=== PATIENT | female | born 1955 | race Caucasian/White ===

== ENCOUNTER 2021-11-12 15:26 | Emergency (ER) | payer MEDICARE, SELFPAY ==
--- NOTE | ~2021-11-12 | CT_ITS ---
EXAMINATION: CT brain wo con INDICATION: Head injury COMPARISON: None TECHNIQUE: Standard unenhanced head CT. The dose-length product (DLP) was 681.00 mGy-cm. The mA was a djusted according to patient size. Iterative reconstruction technique was employed. FINDINGS: There is no intracranial hemorrhage, acute infarction, or abnormal mass lesion. The ventric les are normal. There is no abnormal mass effect or midline shift. The love-white matter differentiat ion is normal. The basal cisterns are patent. There is a left frontal scalp hematoma. The orbits are normal. The paranasal sinuses, mastoids and calvarium are normal. IMPRESSION: 1. Left frontal scalp hematoma without acute intracranial abnormality. Reviewed, dictated and finalized at [facility].
--- NOTE | 2021-11-12 15:33 | ED.FALL ---
HPI - Fall General Chief Complaint: Fall Stated Complaint: FELL AND HIT HEAD Source: patient and RN notes reviewed Mode of arrival: ambulatory Limitations: no limitations History of Present Illness HPI Narrative: patient states that she fell 1 week ago in the bathroom hit her forehead right at the hairline. She now has some bruising around her left eye. The swelling on her left forehead is still painful and present therefore she came the emergency room to get an x-ray. She was having some headaches but those stopped 2 days ago. She has no other neurological symptoms. MD complaint: fall Onset (ago): day(s) (7) Fall from: standing Fall witnessed: no Place fall occurred: home Loss of consciousness: unsure Prolonged down time: no Symptoms prior to fall: none Context: tripped/slipped Location of injury: head Severity: mild Quality: dull and aching Associated symptoms (after fall): denies Related Data Home Medications Medication Instructions Recorded Confirmed alprazolam 0.5 mg tablet 0.5 mg PO BID 11/12/21 11/12/21 atorvastatin 40 mg tablet 40 mg PO DAILY 11/12/21 11/12/21 azelastine 0.05 % eye drops 1 drp EACH EYE BID 11/12/21 11/12/21 buspirone 5 mg tablet 5 mg PO TID 11/12/21 11/12/21 diltiazem HCl 180 mg 180 mg PO DAILY 11/12/21 11/12/21 capsule,extended release 24 hr duloxetine 60 mg capsule,delayed 60 mg PO DAILY 11/12/21 11/12/21 release empagliflozin 25 mg tablet 25 mg PO DAILY 11/12/21 11/12/21 (Jardiance) ergocalciferol (vitamin D2) 1,250 1,250 mcg PO WEEKLY 11/12/21 11/12/21 mcg (50,000 unit) capsule ezetimibe 10 mg tablet 10 mg PO DAILY 11/12/21 11/12/21 fenofibrate 54 mg tablet 54 mg PO DAILY 11/12/21 11/12/21 ferrous sulfate 325 mg (65 mg 325 mg PO DAILY 11/12/21 11/12/21 iron) tablet furosemide 40 mg tablet 60 mg PO DAILY 11/12/21 11/12/21 gabapentin 300 mg capsule 300 mg PO TID 11/12/21 11/12/21 hydrochlorothiazide 25 mg tablet 25 mg PO DAILY 11/12/21 11/12/21 insulin aspart U-100 100 unit/mL 50 unit subcut TID 11/12/21 11/12/21 (3 mL) subcutaneous pen (Novolog Flexpen U-100 Insulin aspart) insulin degludec 200 unit/mL (3 10 unit subcut QAM 11/12/21 11/12/21 mL) subcutaneous pen (Tresiba FlexTouch U-200 insulin) levothyroxine 25 mcg tablet 25 mcg PO DAILY 11/12/21 11/12/21 ramipril 10 mg capsule 10 mg PO BID 11/12/21 11/12/21 Allergies Allergy/AdvReac Type Severity Reaction Status Date / Time No Known Allergies Allergy Unverified 11/12/21 15:54 Review of Systems Review of Systems: All systems reviewed & are unremarkable except as noted in HPI and below Neurologic: Denies confusion, Denies dizziness, Denies syncope and Denies focal weakness PMFSH Past Medical History Medical History (Updated 11/12/21 @ 16:42 by Edwin Hoover MD) Chronic renal failure Congestive heart failure COPD (chronic obstructive pulmonary disease) Hyperlipidemia Hypertension Type 2 diabetes mellitus Family History Family History Father Hypertension Family history of diabetes mellitus in first degree relative Family history of lung cancer Mother Hypertension Family history of diabetes mellitus in first degree relative Family history of coronary artery disease Sibling Cerebrovascular accident Social History Social History (Updated 11/12/21 @ 15:54 by Edwin Hoover MD) Smoking status: Former smoker Alcohol intake: never Exam Const: General: healthy appearing, no acute distress and alert Nutritional Appearance: well nourished and obese morbidly obese Orientation/consciousness: patient oriented x3 Limitations: no limitations HENMT: Head: hematoma left frontal 3 cm Ears: external ears normal Face and sinus: sinuses tender, face symmetric, ecchymosis on the left periorbital and no tenderness Eyes: Conjunctivae: conjunctivae normal Pupils: Equal, round and reactive pupils present EOM: EOMs intact bilaterally Neck:
[2021-11-12 15:50] VITALS: BP 129/63; PULSE 70; RESP 16; TEMP 36.6; O2SAT 98
--- NOTE | 2021-11-12 16:12 | PC.NURSE ---
upon arrival patient refused to sit on stretcher and request to stay in personal wheelchair. states its more comfortable for her.
[2021-11-12 16:46] VITALS: BP 162/57; PULSE 63; RESP 16; TEMP 36.8; O2SAT 100
== END 2021-11-12 16:48 | disposition home or self-care (01) ==
PROVIDERS: Emergency Provider Emergency Medicine
DX: S00.03XA Contusion of scalp, initial encounter (principal); W19.XXXA Unspecified fall, initial encounter; I50.9 Heart failure, unspecified; J44.9 Chronic obstructive pulmonary disease, unspecified; I12.9 Hypertensive chronic kidney disease with stage 1 through stage 4 chronic kidney disease, or unspecified chronic kidney disease; E11.22 Type 2 diabetes mellitus with diabetic chronic kidney disease; N18.9 Chronic kidney disease, unspecified; Z87.891 Personal history of nicotine dependence; Z79.4 Long term (current) use of insulin
CPT/HCPCS: 70450; 99284

== ENCOUNTER 2022-06-05 13:39 | Emergency (ER) | payer MEDICARE, SELFPAY ==
[2022-06-05] VITALS (10 sets, daily range): BP systolic 132–164; BP diastolic 46–78; PULSE 66–77; RESP 14–22; TEMP 36.2; O2SAT 94–98
--- NOTE | ~2022-06-05 | XR_ITS ---
Portable chest x-ray Comparison: 01/09/2011 Clinical History: Dyspnea Findings: Central congestive changes present. No focal consolidation or pleural effusion Cardiomedi astinal silhouette is stable. Bones and soft tissues are unremarkable. Impression: Central pulmonary venous congestive change. Reviewed, dictated and finalized at [facility]. PRESS OPERATOR Impression: Central pulmonary venous congestive change.
--- NOTE | 2022-06-05 14:03 | ECG_ITS ---
Measurements Intervals [place] Rate: 66 P: 66 [place]: 178 QRS: 36 QRSD: 114 T: 148 QT: 423 QTc: 444 Interpretive Statements SINUS RHYTHM INTRAVENTRICULAR CONDUCTION DELAY BORDERLINE ST-T WAVE ABNORMALITY- INF/HIGH LAT LEADS BORDERLINE ECG NO PREVIOUS ECG AVAILABLE FOR COMPARISON Electronically Signed On 06-05-2022 19:13:12 PICK UP DRIVER by Fernando Medina D.O.
[2022-06-05] MEDS: IPRATROPIUM 0.5 MG/ALBUTEROL SULFATE 2.5 MG AMPUL.NEB 3 ML INHALATION (14:37)
[2022-06-05 14:43] LABS: Basophils Absolute Auto 0.04 K/mm3 (0.00-0.10); Basophils Percent Auto 0.4 % (0.0-1.0); Eosinophils Absolute Auto 0.17 K/mm3 (0.02-0.50); Eosinophils Percent Auto 1.9 % (1.0-6.0); Hematocrit 30.3 % (35.0-42.0); Hemoglobin 9.7 g/dL (11.7-13.8); Immature Granulocyte Absolute 0.03 K/mm3 (0.00-0.00); Immature Granulocyte Percent A 0.3 % (0.0-0.0); Lymphocytes Absolute Auto 0.63 K/mm3 (1.10-4.50); Lymphocytes Percent Auto 7.1 % (18.0-42.0); Mean Corpuscular Volume 96.8 fL (78.0-102.0); Mean Platelet Volume 8.6 fl (9.2-11.8); Monocytes Absolute Auto 0.51 K/mm3 (0.10-0.90); Monocytes Percent Auto 5.7 % (2.0-11.0); Neutrophils Absolute Auto 7.6 K/mm3 (1.7-7.2); Neutrophils Percent Auto 84.6 % (50.0-70.0); Platelet Count Result 361 K/mm3 (150-420); Red Blood Count 3.13 M/mm3 (4.20-5.40); Red Cell Distribution Width 13.2 % (11.6-14.4); White Blood Count 8.9 K/mm3 (4.8-10.8)
[2022-06-05] MEDS: methylPREDNISolone SOD SUCC 125 MG VIAL IV PUSH (14:55)
[2022-06-05 15:07] LABS: Alanine Aminotransferase 31 U/L (14-59); Albumin Level 2.5 g/dL (3.4-5.0); Alkaline Phosphatase 86 U/L (46-116); Anion Gap 5 mmol/L (8-16); Aspartate Amino Transferase 22 U/L (15-37); Bilirubin,Total 0.2 mg/dL (0.00-1.00); Blood Urea Nitrogen 40 mg/dL (7-18); Calcium 6.1 mg/dL (8.5-10.1); Carbon Dioxide 33 mmol/L (21-32); Chloride 97 mmol/L (98-108); Estimated CRCL calculation 26 ml/min; Estimated Glomerular Filt Rate 24; Glucose 77 mg/dL (70-99); Magnesium 2.7 mg/dL (1.8-2.4); NT Pro B Type Natriuretic Pept 616 pg/mL (0-125); Osmolality Calculated 288 mOsm/kg (285-295); Potassium 4.4 mmol/L (3.5-5.1); Sodium 135 mmol/L (136-145); Troponin I 13.1 ng/L (0.00-60.4)
[2022-06-05 15:09] LABS: D Dimer 0.28 mg/L (0.19-0.50); INR 0.9; Partial Thromboplastin Time 27.1 SEC (23.90-30.70); Prothrombin Time 10.1 Seconds (9.50-12.10)
[2022-06-05 15:22] LABS: Influenza A QL RT-PCR Negative (Negative); Influenza B QL RT-PCR Negative (Negative); SARS-CoV-2 RNA PCR Negative (Negative)
--- NOTE | 2022-06-05 15:22 | ED.SOB ---
HPI - SOB/Dyspnea General Chief Complaint: Shortness of Breath/Dyspnea Stated Complaint: upper respiratory issues Time Seen by Provider: 06/05/22 14:00 Source: patient and family Mode of arrival: EMS Limitations: no limitations History of Present Illness HPI Narrative: this is a 67-year-old female with a history of COPD currently nonsmoker quit approximately 6 years ago history chronic kidney disease and CHF presents with a five-day history of progressively worsening shortness of breath with a cough productive yellow sputum with vital signs stable O2 sats nearly 98% on room air has not been vaccinated car for COVID but patient has had 2 successive negative COVID test at home. Currently not having any chest pain no fever chills no nausea vomiting no abdominal pain no flank pain. MD elicited complaint: shortness of breath and cough Pertinent past history: COPD Onset (ago): day(s) Severity: mild Exacerbating factors: coughing Relieving factors: bronchodilators Related Data Home Medications Medication Instructions Recorded Confirmed alprazolam 0.5 mg tablet 0.5 mg PO BID 11/12/21 11/12/21 atorvastatin 40 mg tablet 40 mg PO DAILY 11/12/21 11/12/21 azelastine 0.05 % eye drops 1 drp EACH EYE BID 11/12/21 11/12/21 buspirone 5 mg tablet 5 mg PO TID 11/12/21 11/12/21 diltiazem HCl 180 mg 180 mg PO DAILY 11/12/21 11/12/21 capsule,extended release 24 hr duloxetine 60 mg capsule,delayed 60 mg PO DAILY 11/12/21 11/12/21 release empagliflozin 25 mg tablet 25 mg PO DAILY 11/12/21 11/12/21 (Jardiance) ergocalciferol (vitamin D2) 1,250 1,250 mcg PO WEEKLY 11/12/21 11/12/21 mcg (50,000 unit) capsule ezetimibe 10 mg tablet 10 mg PO DAILY 11/12/21 11/12/21 fenofibrate 54 mg tablet 54 mg PO DAILY 11/12/21 11/12/21 ferrous sulfate 325 mg (65 mg 325 mg PO DAILY 11/12/21 11/12/21 iron) tablet furosemide 40 mg tablet 60 mg PO DAILY 11/12/21 11/12/21 gabapentin 300 mg capsule 300 mg PO TID 11/12/21 11/12/21 hydrochlorothiazide 25 mg tablet 25 mg PO DAILY 11/12/21 11/12/21 insulin aspart U-100 100 unit/mL 50 unit subcut TID 11/12/21 11/12/21 (3 mL) subcutaneous pen (Novolog FlexPen U-100 Insulin aspart) insulin degludec 200 unit/mL (3 10 unit subcut QAM 11/12/21 11/12/21 mL) subcutaneous pen (Tresiba FlexTouch U-200 insulin) levothyroxine 25 mcg tablet 25 mcg PO DAILY 11/12/21 11/12/21 ramipril 10 mg capsule 10 mg PO BID 11/12/21 11/12/21 Allergies Allergy/AdvReac Type Severity Reaction Status Date / Time iodine Allergy Unknown Verified 06/05/22 14:38 Review of Systems Review of Systems: All systems reviewed & are unremarkable except as noted in HPI and below PMFSH Past Medical History Medical History Chronic renal failure Congestive heart failure COPD (chronic obstructive pulmonary disease) Hyperlipidemia Hypertension Type 2 diabetes mellitus Family History Family History Father Hypertension Family history of diabetes mellitus in first degree relative Family history of lung cancer Mother Hypertension Family history of diabetes mellitus in first degree relative Family history of coronary artery disease Sibling Cerebrovascular accident Social History Social History Smoking status: Former smoker Alcohol intake: never Exam Const: General: healthy appearing Nutritional Appearance: well nourished Limitations: no limitations HENMT: Head: normal to inspection Face/Nose/Sinus: Normal external nose present Face and sinus: normal facial exam Mouth: Yes Normal oral and palatal mucosa present Eyes: Conjunctivae: conjunctivae normal Pupils: Equal, round and reactive pupils present EOM: EOMs intact bilaterally Neck: Neck: normal visual inspection Chest: Chest palpation & inspection: normal inspection of the chest Resp: Effort &
[2022-06-05 15:25] LABS: Appearance Urine Clear (Clear); Bilirubin Urine Negative (Negative); Blood Urine Trace-Intact (Negative); Color Urine Light Yellow (Yellow); Glucose Urine UA 1+ (Negative); Ketones Urine Negative (Negative); Leukocyte Esterase Ur Negative LEU/UL (Negative); Nitrate Urine Negative (Negative); Protein Urine 2+ (Negative); Urobilinogen Urine 0.2 mg/dL (0.2-1.0)
[2022-06-05 15:35] LABS: RSV RNA, RT-PCR Negative (Negative)
[2022-06-05 15:41] LABS: Add Urine Microscopic? YES; Bacteria Urine 1+ /hpf; RBC Urine 0-2 /hpf (0-2); Squamous Epithelial Cell Urine Few /hpf (Few); WBC Urine 0-3 /hpf (0-3)
--- NOTE | 2022-06-05 15:52 | PC.NURSE ---
provider at pt bedside for update including plan of care.
[2022-06-05] MEDS: levoFLOXacin 500 MG/D5W 100 ML 500 MG/100 ML BAG 100 MG IVPB (16:12)
[2022-06-05] MEDS: diphenhydrAMINE HCl INJ 50 MG/ML VIAL 25 MG IV PUSH (16:32)
== END 2022-06-05 17:17 | disposition home or self-care (01) ==
PROVIDERS: Emergency Provider Emergency Medicine
DX: J44.1 Chronic obstructive pulmonary disease with (acute) exacerbation (principal); J06.9 Acute upper respiratory infection, unspecified; I13.0 Hypertensive heart and chronic kidney disease with heart failure and stage 1 through stage 4 chronic kidney disease, or unspecified chronic kidney disease; I50.9 Heart failure, unspecified; N18.9 Chronic kidney disease, unspecified; E11.22 Type 2 diabetes mellitus with diabetic chronic kidney disease; Z87.891 Personal history of nicotine dependence; Z79.4 Long term (current) use of insulin; Z20.822 Contact with and (suspected) exposure to COVID-19
CPT/HCPCS: 36415; 71045; 80053; 81001; 83735; 83880; 84484; 85025; 85380; 85610; 85730; 87637; 93005; 94640; 96374; 96375; 99284; J1200; J1956; J2930

== ENCOUNTER 2023-08-09 10:23 | Emergency (ER) | payer MEDICARE, SELFPAY ==
--- NOTE | ~2023-08-09 | CT_ITS ---
EXAMINATION: CT orbit BI wo con DATE: 08/09/2023 10:53 INDICATION: Left eye swelling and tenderness for one week TECHNIQUE: Computed tomography (CT) of the head was performed without intravenous contrast. The mA wa s adjusted according to patient size. Iterative reconstruction technique was employed. Exam dose: 25 3.21 mGy-cm total exam DLP. Orbits COMPARISON: None FINDINGS: There is asymmetric skin thickening over the left periorbital region. No intraconal or extraconal mass lesion is detected on either side. No proptosis is noted. No radiopa que foreign body. No orbital emphysema. There is a very small fluid level of the left maxillary sinus minimal. Minimal mucoperiosteal thicken ing of the maxillary sinuses. The frontal sinuses and ethmoid air cells and sphenoid sinuses are unre markable. The orbital rims and borges are intact. IMPRESSION: Nonspecific left. Orbital skin thickening No orbital mass lesion Very small fluid level in left maxillary sinus, minimally compressing the maxillary sinuses Reviewed, dictated and finalized at [facility]. Reviewed, dictated and finalized at [facility]. IMPRESSION: Nonspecific left. Orbital skin thickening No orbital mass lesion Very small fluid level in left maxillary sinus, minimally compressing the maxil aurelio sinuses
[2023-08-09 10:27] VITALS: BP 119/49; PULSE 82; RESP 18; TEMP 36.6; O2SAT 92
--- NOTE | 2023-08-09 10:37 | ED.GENADULT ---
HPI - General Adult General Chief complaint: Eye Problems Stated complaint: Eye issue Time Seen by Provider: 08/09/23 10:26 History of Present Illness HPI narrative: Tamanna is a 68F with a PMH of DMII, CHF, CKD, and COPD that presented to the ED with 5 days of worsening left eye swelling, tenderness, itching and clear drainage. No fevers, chills, N/V, chest pain or dyspnea. No trauma reported. No vision changes. She cannot tolerate dye d/t CKD. Related Data Home Medications Medication Instructions Recorded Confirmed alprazolam 0.5 mg tablet 0.5 mg PO BID 11/12/21 11/12/21 atorvastatin 40 mg tablet 40 mg PO DAILY 11/12/21 11/12/21 azelastine 0.05 % eye drops 1 drp EACH EYE BID 11/12/21 11/12/21 buspirone 5 mg tablet 5 mg PO TID 11/12/21 11/12/21 diltiazem HCl 180 mg 180 mg PO DAILY 11/12/21 11/12/21 capsule,extended release 24 hr duloxetine 60 mg capsule,delayed 60 mg PO DAILY 11/12/21 11/12/21 release empagliflozin 25 mg tablet 25 mg PO DAILY 11/12/21 11/12/21 (Jardiance) ergocalciferol (vitamin D2) 1,250 1,250 mcg PO WEEKLY 11/12/21 11/12/21 mcg (50,000 unit) capsule ezetimibe 10 mg tablet 10 mg PO DAILY 11/12/21 11/12/21 fenofibrate 54 mg tablet 54 mg PO DAILY 11/12/21 11/12/21 ferrous sulfate 325 mg (65 mg 325 mg PO DAILY 11/12/21 11/12/21 iron) tablet furosemide 40 mg tablet 60 mg PO DAILY 11/12/21 11/12/21 gabapentin 300 mg capsule 300 mg PO TID 11/12/21 11/12/21 hydrochlorothiazide 25 mg tablet 25 mg PO DAILY 11/12/21 11/12/21 insulin aspart U-100 100 unit/mL 50 unit subcut TID 11/12/21 11/12/21 (3 mL) subcutaneous pen (Novolog FlexPen U-100 Insulin aspart) insulin degludec 200 unit/mL (3 10 unit subcut QAM 11/12/21 11/12/21 mL) subcutaneous pen (Tresiba FlexTouch U-200 insulin) levothyroxine 25 mcg tablet 25 mcg PO DAILY 11/12/21 11/12/21 ramipril 10 mg capsule 10 mg PO BID 11/12/21 11/12/21 Allergies Allergy/AdvReac Type Severity Reaction Status Date / Time iodine Allergy Unknown Verified 08/09/23 10:30 Review of Systems Review of Systems: All systems reviewed & are unremarkable except as noted in HPI and below PMFSH Past Medical History Medical History Chronic renal failure Congestive heart failure COPD (chronic obstructive pulmonary disease) Hyperlipidemia Hypertension Type 2 diabetes mellitus Family History Family History Father Hypertension Family history of diabetes mellitus in first degree relative Family history of lung cancer Mother Hypertension Family history of diabetes mellitus in first degree relative Family history of coronary artery disease Sibling Cerebrovascular accident Social History Social History Smoking status: Former smoker Alcohol intake: never Exam Const: General: cooperative, healthy appearing, comfortable, no acute distress, well developed, alert, awake and Physically active Orientation/consciousness: oriented to person, oriented to place and oriented to time HENMT: Head: normal to inspection, normocephalic and atraumatic Ears: hearing grossly normal bilaterally and external ears normal Face/Nose/Sinus: Normal external nose present Eyes: Sclera: sclerae normal Pupils: Equal, round and reactive pupils present Other: Periorbital structures of left eye are swollen and edematous. There is mild erythema but no warmth and no drainage on exam. Neck: Neck: normal visual inspection Chest: Chest palpation & inspection: normal inspection of the chest Resp: Effort & Inspection: normal respiratory effort, able to speak in complete sentences and no respiratory distress Auscultation: clear to auscultation bilaterally Cardio: Jugular venous distension: no JVD Rate: regular rate Rhythm: regular rhythm Skin: General skin exam: normal color and no rashes or lesions no
[2023-08-09] MEDS: HYDROcodone/acetaminophen (*CRX) 5-325 MG TABLET 1 TAB PO (10:57)
[2023-08-09 11:00] VITALS: BP 137/51; PULSE 57; RESP 17; O2SAT 90
[2023-08-09 11:01] LABS: Basophils Absolute Auto 0.04 K/mm3 (0.00-0.10); Basophils Percent Auto 0.5 % (0.0-1.0); Eosinophils Absolute Auto 0.21 K/mm3 (0.02-0.50); Eosinophils Percent Auto 2.6 % (1.0-6.0); Hemoglobin 11.1 g/dL (11.7-13.8); Immature Granulocyte Absolute 0.07 K/mm3 (0.00-0.00); Immature Granulocyte Percent A 0.9 % (0.0-0.0); Lymphocytes Absolute Auto 0.83 K/mm3 (1.10-4.50); Lymphocytes Percent Auto 10.1 % (18.0-42.0); Mean Corpuscular HGB Conc 30.8 g/dL (32-36); Mean Corpuscular Volume 90.9 fL (78.0-102.0); Mean Platelet Volume 8.8 fl (9.2-11.8); Monocytes Percent Auto 7.3 % (2.0-11.0); Neutrophils Absolute Auto 6.43 K/mm3 (1.70-7.20); Neutrophils Percent Auto 78.6 % (50.0-70.0); Platelet Count Result 396 K/mm3 (150-420); Red Blood Count 3.96 M/mm3 (4.20-5.40); Red Cell Distribution Width 14.8 % (11.6-14.4); White Blood Count 8.2 K/mm3 (4.8-10.8)
[2023-08-09 11:21] LABS: Alanine Aminotransferase 21 U/L (14-59); Alkaline Phosphatase 75 U/L (46-116); Anion Gap 2 mmol/L (4-12); Aspartate Amino Transferase 21 U/L (15-37); Bilirubin,Total 0.2 mg/dL (0.00-1.00); Blood Urea Nitrogen 44 mg/dL (7-18); Carbon Dioxide 40 mmol/L (21-32); Chloride 97 mmol/L (98-108); Estimated Glomerular Filt Rate 23; Glucose 175 mg/dL (70-99); Osmolality Calculated 303 mOsm/kg (285-295); Potassium 3.9 mmol/L (3.5-5.1); Sodium 139 mmol/L (136-145); Total Protein 5.9 g/dL (6.4-8.2)
[2023-08-09 11:26] LABS: Lactic Acid Reflex 1.4 mmol/L (0.4-2.0)
[2023-08-09 11:30] VITALS: BP 139/51; PULSE 57; RESP 17; O2SAT 94
[2023-08-09 11:31] LABS: CRP < 0.1 mg/dL (0.0-0.9)
[2023-08-09] MEDS: FAMOTIDINE 20 MG TABLET PO (11:41)
[2023-08-09] MEDS: diphenhydrAMINE HCl CAP 25 MG CAPSULE 50 MG PO (11:41)
[2023-08-09 12:00] VITALS: BP 128/52; PULSE 57; RESP 17; O2SAT 93
[2023-08-09 12:07] VITALS: BP 128/52; PULSE 57; RESP 17; TEMP 36.7; O2SAT 93
== END 2023-08-09 12:07 | disposition home or self-care (01) ==
PROVIDERS: Emergency Provider Family Medicine; PCP Internal Medicine
DX: H10.53 Contact blepharoconjunctivitis (principal); I13.0 Hypertensive heart and chronic kidney disease with heart failure and stage 1 through stage 4 chronic kidney disease, or unspecified chronic kidney disease; I50.9 Heart failure, unspecified; E11.22 Type 2 diabetes mellitus with diabetic chronic kidney disease; N18.9 Chronic kidney disease, unspecified; J44.9 Chronic obstructive pulmonary disease, unspecified; Z79.84 Long term (current) use of oral hypoglycemic drugs; Z79.4 Long term (current) use of insulin; Z79.51 Long term (current) use of inhaled steroids; Z87.891 Personal history of nicotine dependence
CPT/HCPCS: 36415; 70480; 80053; 83605; 85025; 86140; 99283; A9270